=== PATIENT | female | born 1950 | race Caucasian/White ===

== ENCOUNTER → 2017-06-25 | Outpatient (CLI) | payer OTHER ==
[~2017-06-25] MED LIST: NOHOMEMEDICATIONS; PERCOCET PO; PROTONIX40 MG PO; TOVIAZ4 M1 PO
--- NOTE | ~2017-06-25 | EKG ---
[address] [place] [address] ELECTROCARDIOGRAM REPORT Name: AMADO ORR [facility] [id number] Admission: 06/25/17 Attend Phys: Brady Walker MD Discharge: Date of : 54 Report #: [id number] THIS REPORT FOR: //name// [facility] Test Date: 2017-06-25 Test Time: 12:44:02 Pat Name: AMADO ORR Department: Room: Gender: F State Director: LAUREN : 1950 Requested By: Brady Walker Order Number: [id number] MD: Sixto Camp Measurements Intervals [place] Rate: 71 P: 27 NM: 175 QRS: -28 QRSD: 109 T: 11 QT: 408 QTc: 444 Interpretive Statements Sinus rhythm Abnormal R-wave progression, early transition Compared to ECG 05/08/2016 13:03:38 No significant changes Electronically Signed On 06-26-2017 9:42:17 CDT by Sixto Camp [email or web address] <ELECTRONICALLY SIGNED> By: Sixto Camp MD, [facility] 06/26/17 0942 1244 1244 Sixto Camp MD, [facility] /EPI
== END ==
LOC: LITH 06:50
DX: N20.0 Calculus of kidney (principal)

== ENCOUNTER → 2018-02-17 | Outpatient (CLI) | payer OTHER ==
[~2018-02-17] VITALS: Ht 157.5 cm; Wt 100.7 kg
[~2018-02-17] MED LIST changes: +CENTRUM SILVER1 EAC4 PO
--- NOTE | ~2018-02-17 | O ---
[facility] [place] [address] OPERATIVE REPORT Name: AMADO ORR Room #: REG HEBERPatt Ybarra#: [id number] Admission: 02/17/18 Attend Phys: Daljit Modi MD, Discharge: Date of : 54 Report #: [id number] THIS REPORT FOR: //name// CC: Sylvester Modi DATE OF SERVICE: 02/17/2018 PREOPERATIVE DIAGNOSES: 1. Gastroesophageal reflux disease. 2. Intermittent dysphagia. 3. History of laparoscopic sleeve gastrectomy. 4. Recent history of type 3 paraesophageal hernia repair with cruroplasty. 5. Morbid obesity with a body mass index of greater than 35. POSTOPERATIVE DIAGNOSES: 1. Gastroesophageal reflux disease. 2. Intermittent dysphagia. 3. History of laparoscopic sleeve gastrectomy. 4. Recent history of type 3 paraesophageal hernia repair with cruroplasty. 5. Morbid obesity with a body mass index of greater than 35. 6. No evidence of recurrent hiatal herniation. PROCEDURE PERFORMED: Thorough esophagogastroduodenoscopy (EGD). SURGEON: Daljit Modi MD TRACK REPAIRER: None. ANESTHESIA: Monitored anesthesia care. ESTIMATED BLOOD LOSS: None. COMPLICATIONS: None. SPECIMENS: None. INDICATIONS: The patient is a 67-year-old morbidly obese female who initially underwent a laparoscopic sleeve gastrectomy at [facility] greater than 5 years ago. Since that time, the patient unfortunately developed a cholecystoenteric fistula after undergoing a gynecologic procedure that required an exploratory laparotomy with sigmoid colectomy and segmental small-bowel resection. Ultimately, she healed up from that having evidence of a recurrent incisional hernia for which she then underwent repair. Over the past year or so, she has been complaining of severe debilitating upper abdominal pain with GERD type symptoms and was found to have a type 3 paraesophageal hernia on [facility] [address] [place] [address] OPERATIVE REPORT Name: BARBY ORRNA Room #: REG [facility] Tate#: [id number] Admission: 02/17/18 Attend Phys: Daljit Modi MD, Discharge: Date of : 54 Report #: [id number] EGD and upper GI swallow. The patient was adamant and refusing conversion to a Danielle-en-Y gastric bypass nor was she willing to undergo placement of a LINX antireflux device, but desired repair of her hiatal defect with normalization of her gastric anatomy. As such, the patient underwent laparoscopic repair of a type 3 paraesophageal hernia with cruroplasty and biomesh buttressing several weeks ago. Since that time, the patient has been doing well, although continues to complain of upper abdominal pain with eating larger meals. The patient underwent an upper GI swallow showing a slightly dilated proximal gastric pouch with a narrowing and then a normal sleeve distally. As such, indication was for EGD today. 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 No evidence of recurrent hiatal herniation was seen today. PROCEDURE: After explaining the risks, benefits and alternatives of the procedure with the patient in detail and obtaining consent, the patient was brought to the endoscopy suite supine on her hospital cart. After conducting a thorough timeout procedure, verifying correct patient and procedure, the patient was given monitored anesthesia care. Once adequate anesthesia was obtained, her SCDs were hooked up to pneumatic compression device and she was given monitored anesthesia. The Olympus upper endoscope was used to intubate the oropharynx and was traversed down into the esophagus with ease. This was advanced past the pylorus into the second portion of the duodenum where slow careful withdrawal of the EGD scope showed no evidence of duodenitis, gastritis, mass lesions or ulcerations, although there was a very minor esophagitis in the distal esophagus. A thorough inspection was undertaken throughout the gastric sleeve and at the location concordant with the upper GI swallow, there was evidence of slight narrowing to her gastric sleeve with the slightly larger proximal gastric pouch above the narrowed area, although this was widely patent and able to easily handle an EGD scope. A retroflexion view in the proximal gastric pouch showed no evidence of recurrent hiatal herniation whatsoever. Review of the upper GI swallow showed this to be right at the level of the diaphragm and the hiatus, again showing no evidence of recurrent hiatal herniation. The scope was straightened out and was again seen to easily traverse through the gastroesophageal juncture and into a straight sleeve gastrectomy with slight narrowing approximately 10 cm distal to the gastroesophageal juncture. As this was nonobstructive, the scope was used to desufflate the stomach fully and was removed and passed off the field completing the procedure. At the end of the procedure, all instrument, needle, and sponge counts were correct. The patient tolerated the procedure without incident, was awakened in the operating room and [facility] [address] [place] [address] OPERATIVE REPORT Name: AMADO ORR Room #: WYATT OgdenDorothy#: [id number] Admission: 02/17/18 Attend Phys: Daljit Modi MD, Discharge: Date of : 54 Report #: [id number] transitioned to the recovery room in stable condition with no apparent complications. <ELECTRONICALLY SIGNED> By: Daljit Modi MD, FACS 02/18/18 0830 1046 1129 Daljit Modi MD, FACS /nt
== END | disposition home or self-care (01) ==
LOC: GI 05:55
DX: E66.01 Morbid (severe) obesity due to excess calories (principal); K21.0 Gastro-esophageal reflux disease with esophagitis; R13.19 Other dysphagia; Z98.890 Other specified postprocedural states; Z68.35 Body mass index [BMI] 35.0-35.9, adult; Z98.84 Bariatric surgery status; Z87.891 Personal history of nicotine dependence; Z87.442 Personal history of urinary calculi; Z98.0 Intestinal bypass and anastomosis status; Z90.710 Acquired absence of both cervix and uterus; Z90.49 Acquired absence of other specified parts of digestive tract

== ENCOUNTER → 2020-07-28 | Outpatient (CLI) | payer OTHER | LOC: LAB 07:36 | PROVIDERS: ATTEND Anesthesiology | DX: Z01.812 Encounter for preprocedural laboratory examination (principal); Z20.828 Contact with and (suspected) exposure to other viral communicable diseases ==